=== PATIENT | male | born 1935 | race Caucasian/White ===

== ENCOUNTER 2018-07-14 20:11 | Emergency (ER) | payer MEDICARE, BC ==
--- NOTE | 2018-07-14 21:09 | RAD ---
CHEST ONE VIEW 07/14/18 HISTORY: Chest pain. COMPARISON: Chest radiograph 2015. FINDINGS: There is some scarring in the lung bases. Displaced suture anchor in the right subacromial space. Incomplete evaluation of the lumbar spinal fusion hardware. IMPRESSION: No acute intrathoracic abnormality. POS: [facility]
[2018-07-14] MEDS ORDERED: Dexamethasone 10 MG/ML VIAL ONE (21:15)
[2018-07-14 21:53] LABS: ALT (SGPT) 22 U/L (8-55); AST (SGOT) 21 U/L (5-34); Albumin 4.2 g/dL (3.4-4.8); Alkaline Phosphatase 80 U/L (40-150); Anion Gap 11 mmol/L (10-20); BUN (Urea Nitrogen) 10 mg/dL (8.4-25.7); Bilirubin, Total 0.7 mg/dL (0.2-1.2); CK (CPK) 35 U/L (30-200); Calc. Creatinine Clearance 0 mL/min (70-130); Calcium 9.5 mg/dL (7.8-10.44); Carbon Dioxide 27 mmol/L (23-31); Chloride 103 mmol/L (98-107); Estimated GFR-MDRD Greater than 90; Globulin 2.6 g/dL (2.4-3.5); Glucose 120 mg/dL (83-110); Lipase 73 U/L (8-78); Potassium 4.4 mmol/L (3.5-5.1); Protein, Total 6.8 g/dL (5.8-8.1); Sodium 137 mmol/L (136-145)
[2018-07-14 21:55] LABS: CKMB 0.9 ng/mL (0-6.6); Troponin I Less than 0.010 ng/mL (< 0.028)
[2018-07-14 22:12] LABS: #Lymphocytes 0.6 thou/uL (1.20-3.40); #Monocytes 0.6 thou/uL (0.11-0.59); #Neutrophils 5.6 thou/uL (1.40-6.50); %Eosinophils 0.1 % (0.0-10.0); %Lymphocytes 8.7 % (21.0-51.0); %Neutrophils 82.3 % (42.0-75.0); Hemoglobin 14.9 g/dL (14.0-18.0); Mean Corpuscular HGB CONC 33.1 g/dL (32.0-36.0); Mean Corpuscular Hemoglobin 32.2 pg (27.0-31.0); Mean Corpuscular Volume 97.1 fL (78.0-98.0); Mean Platelet Volume 6.8 fL (7.4-10.4); Platelet Count 236 thou/uL (130-400); RBC Distribution Width 11.7 % (11.5-14.5); Red Blood Cell (RBC) Count 4.63 mill/uL (4.70-6.10); White Blood Cell (WBC) Count 6.8 thou/uL (4.8-10.8)
--- NOTE | 2018-07-21 11:32 | EKG ---
Test Reason : DIZZINESS Blood Pressure : / mmHG Vent. Rate : 072 BPM Atrial Rate : 072 BPM P-R Int : 196 ms QRS Dur : 086 ms QT Int : 358 ms P-R-T Axes : 024 -08 030 degrees QTc Int : 392 ms Sinus rhythm with occasional Premature ventricular complexes Inferior infarct , age undetermined Abnormal ECG Confirmed by JOVAN MCRAE, EVAN ([id number]), publishing editor PRATIBHA RICHARDS ([id number]) on 07/21/2018 11:31:59 AM Referred By: Confirmed By:EVAN ALDANA MD
== END 2018-07-14 22:40 | disposition home or self-care (01) ==
LOC: ERS 20:11
DX: R42 Dizziness and giddiness (principal); R21 Rash and other nonspecific skin eruption
CPT/HCPCS: 36415; 71045; 80053; 82553; 83690; 84484; 85025; 93005; 96372; J1100

== ENCOUNTER 2018-07-19 07:44 | Emergency (ER) | payer MEDICARE, BC ==
[2018-07-19] MEDS ORDERED: Nitroglycerin 2% Ointment 1 INCH/1 GM Packet ONE (08:11)
[2018-07-19 08:36] LABS: #Basophils 0.1 thou/uL (0.0-0.2); #Eosinphils 0.1 thou/uL (0.0-0.7); #Lymphocytes 0.5 thou/uL (1.20-3.40); #Monocytes 0.9 thou/uL (0.11-0.59); #Neutrophils 7.4 thou/uL (1.40-6.50); %Basophils 1.4 % (0.0-1.0); %Eosinophils 1.6 % (0.0-10.0); %Lymphocytes 5.6 % (21.0-51.0); %Monocytes 9.5 % (0.0-10.0); %Neutrophils 81.8 % (42.0-75.0); Hemoglobin 15.2 g/dL (14.0-18.0); Mean Corpuscular HGB CONC 32.8 g/dL (32.0-36.0); Mean Corpuscular Hemoglobin 31.6 pg (27.0-31.0); Mean Corpuscular Volume 96.3 fL (78.0-98.0); Mean Platelet Volume 6.8 fL (7.4-10.4); Platelet Count 170 thou/uL (130-400); RBC Distribution Width 11.9 % (11.5-14.5); Red Blood Cell (RBC) Count 4.82 mill/uL (4.70-6.10); White Blood Cell (WBC) Count 9.1 thou/uL (4.8-10.8)
[2018-07-19 08:58] LABS: ALT (SGPT) 32 U/L (8-55); AST (SGOT) 27 U/L (5-34); Alkaline Phosphatase 85 U/L (40-150); Anion Gap 12 mmol/L (10-20); BUN (Urea Nitrogen) 20 mg/dL (8.4-25.7); Bilirubin, Total 0.7 mg/dL (0.2-1.2); CK (CPK) 24 U/L (30-200); Calc. Creatinine Clearance 0 mL/min (70-130); Calcium 9.3 mg/dL (7.8-10.44); Carbon Dioxide 23 mmol/L (23-31); Chloride 105 mmol/L (98-107); Estimated GFR-MDRD Greater than 90; Globulin 2.6 g/dL (2.4-3.5); Glucose 102 mg/dL (83-110); Lipase 105 U/L (8-78); Protein, Total 6.6 g/dL (5.8-8.1); Sodium 136 mmol/L (136-145)
[2018-07-19 09:02] LABS: CKMB 1.1 ng/mL (0-6.6); Troponin I Less than 0.010 ng/mL (< 0.028)
--- NOTE | 2018-07-19 10:26 | CT ---
CT ANGIO CHEST PERFORMED WITH IV CONTRAST ENHANCEMENT WITH 3D RECONSTRUCTIONS: Date 07/19/18 HISTORY: Chest pain, middle of back, radiates to the right side. Pain particularly with deep breath. FINDINGS: There is some gravity-dependent atelectatic change in the left base. There is slightly more prominent linear parenchymal change in the left lower lobe, still appears to represent atelectasis. There are no pleural effusions. No pulmonary nodules are identified. The thoracic aorta appears normal in caliber. There is good pulmonary artery opacification and there is no CT evidence for pulmonary embolus. Review of osseous structures do not show any signs of any acute rib fractures. There are arthritic ch anges of the spine. IMPRESSION: Atelectatic change in the lung bases, more prominent in the left lower lobe. I still would favor this to represent atelectasis rather than developing infiltrate. No CT evidence for pulmonary embolus. POS: [facility]
[2018-07-19] MEDS ORDERED: ISOVUE-370 76%-LOCM 1 ML ONE (11:11)
== END 2018-07-19 10:20 | disposition home or self-care (01) ==
LOC: ERS 07:44
DX: R07.89 Other chest pain (principal)
CPT/HCPCS: 71275; 80053; 82550; 82553; 83690; 83880; 84484; 85025; 93005

== ENCOUNTER 2018-10-09 08:08 | Emergency (ER) | payer MEDICARE, BC ==
[2018-10-09] MEDS ORDERED: Nitroglycerin 2% Ointment 1 INCH/1 GM Packet ONE (08:35)
[2018-10-09] MEDS ORDERED: Aspirin 325 MG TAB ONE (08:35)
[2018-10-09 08:49] LABS: #Eosinphils 0.2 thou/uL (0.0-0.7); #Lymphocytes 0.6 thou/uL (1.20-3.40); #Monocytes 0.4 thou/uL (0.11-0.59); #Neutrophils 3.9 thou/uL (1.40-6.50); %Basophils 0.3 % (0.0-1.0); %Lymphocytes 11.8 % (21.0-51.0); %Monocytes 6.9 % (0.0-10.0); Hemoglobin 15.3 g/dL (14.0-18.0); Mean Corpuscular HGB CONC 31.7 g/dL (32.0-36.0); Mean Corpuscular Hemoglobin 31.1 pg (27.0-31.0); Mean Platelet Volume 6.4 fL (7.4-10.4); Platelet Count 233 thou/uL (130-400); RBC Distribution Width 12.3 % (11.5-14.5); Red Blood Cell (RBC) Count 4.93 mill/uL (4.70-6.10); White Blood Cell (WBC) Count 5.1 thou/uL (4.8-10.8)
[2018-10-09 08:59] LABS: ALT (SGPT) 18 U/L (8-55); AST (SGOT) 20 U/L (5-34); Albumin 4.1 g/dL (3.4-4.8); Alkaline Phosphatase 78 U/L (40-150); Anion Gap 11 mmol/L (10-20); BUN (Urea Nitrogen) 16 mg/dL (8.4-25.7); Bilirubin, Total 0.8 mg/dL (0.2-1.2); Calc. Creatinine Clearance 0 mL/min (70-130); Calcium 9.8 mg/dL (7.8-10.44); Carbon Dioxide 31 mmol/L (23-31); Chloride 104 mmol/L (98-107); Estimated GFR-MDRD Greater than 90; Globulin 2.6 g/dL (2.4-3.5); Glucose 85 mg/dL (83-110); Potassium 3.9 mmol/L (3.5-5.1); Protein, Total 6.7 g/dL (5.8-8.1); Sodium 142 mmol/L (136-145)
--- NOTE | 2018-10-09 09:20 | RAD ---
PORTABLE AP CHEST RADIOGRAPH: Date: 10-09-18 History: Chest pain. Comparison: 07-14-18 FINDINGS: Cardiac silhouette and pulmonary vasculature are within normal limits. Linear densities are seen at t he left lung base which may be related to atelectasis or scarring. Lungs are otherwise clear. Cardiac silhouette and pulmonary vasculature within normal limits. Vascular calcification is seen in the tho racic aorta. Metallic density again overlies the right shoulder which may be related to either post-s urgical change or metallic foreign body. No other interval change. IMPRESSION: Stable chest without significant acute cardiopulmonary process. There is mild atelectasis versus scar ring at the left lung base. POS: [facility]
[2018-10-09 11:25] LABS: Troponin I Less than 0.010 ng/mL (< 0.028)
[2018-10-09] MEDS ORDERED: Acetaminophen 325 MG TAB ONE (11:57)
--- NOTE | 2018-10-10 15:53 | EKG ---
Test Reason : CP Blood Pressure : / mmHG Vent. Rate : 090 BPM Atrial Rate : 090 BPM P-R Int : 228 ms QRS Dur : 090 ms QT Int : 342 ms P-R-T Axes : 046 -09 061 degrees QTc Int : 418 ms Sinus rhythm with 1st degree A-V block Low voltage QRS Inferior infarct , age undetermined Abnormal ECG Confirmed by GE MERLOS ([id number]), editorial director EDWARD MORA ([id number]) on 10/10/2018 3:53:16 PM Referred By: Confirmed By:GE MERLOS
== END 2018-10-09 12:08 | disposition home or self-care (01) ==
LOC: ERS 08:08
DX: R07.89 Other chest pain (principal); G47.00 Insomnia, unspecified
CPT/HCPCS: 36415; 71045; 80053; 84484; 85025; 93005

== ENCOUNTER 2019-03-18 18:05 | Emergency (ER) | payer MEDICARE, BC ==
[~2019-03-18 18:05] MED LIST: ISOVUE-370 76%-LOCM 1 ML ONE
[2019-03-18 19:54] LABS: #Eosinphils 0.4 thou/uL (0.0-0.7); #Lymphocytes 0.9 thou/uL (1.20-3.40); #Monocytes 0.5 thou/uL (0.11-0.59); #Neutrophils 2.8 thou/uL (1.40-6.50); %Basophils 0.1 % (0.0-1.0); %Eosinophils 8.1 % (0.0-10.0); %Lymphocytes 19.2 % (21.0-51.0); %Monocytes 10.1 % (0.0-10.0); %Neutrophils 62.5 % (42.0-75.0); Hemoglobin 14.5 g/dL (14.0-18.0); Mean Corpuscular HGB CONC 33.5 g/dL (32.0-36.0); Mean Corpuscular Hemoglobin 32.2 pg (27.0-31.0); Mean Corpuscular Volume 96.2 fL (78.0-98.0); Platelet Count 179 thou/uL (130-400); RBC Distribution Width 11.8 % (11.5-14.5); Red Blood Cell (RBC) Count 4.48 mill/uL (4.70-6.10); White Blood Cell (WBC) Count 4.5 thou/uL (4.8-10.8)
--- NOTE | 2019-03-18 19:59 | ULT ---
ULTRASOUND DOPPLER DUPLEX VENOUS BILATERAL LOWER EXTREMITIES: DATE: 03/18/2019 HISTORY: Right lower extremity pain in 83-year-old male. The assistant spa manager reported the DVT to the patient's nurse, Lonnie prior to this report TECHNIQUE: Grayscale, color-flow, and spectral analysis, of the bilateral common femoral, profunda femoral, grea ter saphenous, femoral, popliteal, and posterior tibial, veins. FINDINGS: There is thrombosis of the mid and distal portions of the femoral vein. There is blood flow through t hese veins, although somewhat diminished. The midportion of the posterior tibial vein is not visualized, and it is questionably thrombosed. IMPRESSION: Nonocclusive thrombosis, probably acute, of the mid and distal portions of the femoral vein, and poss ibly a portion of the posterior tibial vein.
[2019-03-18 20:02] LABS: INR-International Normal Ratio 1.1; PTT 32.4 SEC (22.9-36.1); Prothrombin Time 14.1 SEC (12.0-14.7)
[2019-03-18 20:15] LABS: ALT (SGPT) 19 U/L (8-55); AST (SGOT) 24 U/L (5-34); Albumin 4.2 g/dL (3.4-4.8); Alkaline Phosphatase 100 U/L (40-150); Anion Gap 12 mmol/L (10-20); BUN (Urea Nitrogen) 18 mg/dL (8.4-25.7); Bilirubin, Total 0.6 mg/dL (0.2-1.2); Calc. Creatinine Clearance 0 mL/min (70-130); Calcium 10.2 mg/dL (7.8-10.44); Carbon Dioxide 29 mmol/L (23-31); Chloride 105 mmol/L (98-107); Estimated GFR-MDRD 84; Globulin 2.3 g/dL (2.4-3.5); Glucose 100 mg/dL (83-110); Potassium 4.1 mmol/L (3.5-5.1); Protein, Total 6.5 g/dL (5.8-8.1); Sodium 142 mmol/L (136-145)
--- NOTE | 2019-03-18 20:59 | CT ---
Contrast-enhanced CTA chest history: Patient with history of knee replacement 2 years ago with heel pain. The patient has suspici ous labs for pulmonary emboli and reports intermittent history of swelling. Contrast-enhanced CTA chest performed 2-D and 3-D reconstruction images performed. There is a large gallstone diameter measuring 1.9 cm. Some areas of left lower lobe lung parenchymal scarring present. Coronary artery calcifications seen. No evidence of pleural or pericardial effusion seen. No evidence of filling defects seen in the pulmonary arteries to suggest pulmonary emboli. In the left lower lobe there appears to be areas of decreased enhancement likely representing pulmona ry veins in the left lung base. IMPRESSION: No evidence of pulmonary emboli.
[2019-03-18] MEDS ORDERED: Enoxaparin Sodium 80 MG/0.8 ML SYRINGE ONE (22:04)
== END 2019-03-18 23:20 | disposition home or self-care (01) ==
LOC: ERS 18:05
DX: I82.401 Acute embolism and thrombosis of unspecified deep veins of right lower extremity (principal)
CPT/HCPCS: 36415; 71275; 80053; 85025; 85379; 85610; 85730; 96372; J1650; Q9966

== ENCOUNTER 2019-04-01 11:38 | Emergency (ER) | payer MEDICARE, BC ==
--- NOTE | 2019-04-01 13:23 | ULT ---
ULTRASOUND DOPPLER DUPLEX VENOUS LEFT LOWER EXTREMITY: DATE: 04/01/2019 HISTORY: Left lower Lexi pain and swelling, edema TECHNIQUE: Grayscale, color-flow, and spectral analysis, of major veins of left lower extremity. FINDINGS: There is demonstration of blood flow with normal compressibility, of the left common femoral, profund a femoral, greater saphenous, femoral, popliteal, and posterior tibial, veins. IMPRESSION: Negative. No deep venous thrombosis of left lower extremity.
--- NOTE | 2019-04-01 14:29 | RAD ---
XR Knee Lt 4 View STANDARD: 04/01/2019 1:48 PM CLINICAL INDICATION: Left knee pain COMPARISON: None. FINDINGS: Bones: There is diffuse osteopenia. No acute fracture or subluxation is present. Joints: There is mild medial femorotibial joint compartmental narrowing. There is chondrocalcinosis s een involving the fibrocartilage of the left knee.. Soft Tissue: No joint capsular distention is evident. There are vascular calcifications within the ad jacent soft tissues.. IMPRESSION: Mild osteoarthrosis of the left knee. No acute fracture or subluxation demonstrated..
== END 2019-04-01 14:43 | disposition home or self-care (01) ==
LOC: ERS 11:38
DX: M25.562 Pain in left knee (principal); I10 Essential (primary) hypertension; Z86.718 Personal history of other venous thrombosis and embolism; G47.00 Insomnia, unspecified; Z79.82 Long term (current) use of aspirin; Z79.01 Long term (current) use of anticoagulants; Z79.899 Other long term (current) drug therapy

== ENCOUNTER 2019-08-13 08:46 | Emergency (ER) | payer MEDICARE, BC | END 2019-08-13 09:50 | disposition home or self-care (01) | LOC: ERS 08:46 | DX: T18.198A Other foreign object in esophagus causing other injury, initial encounter (principal); I10 Essential (primary) hypertension; G47.00 Insomnia, unspecified; Z86.718 Personal history of other venous thrombosis and embolism; Z79.899 Other long term (current) drug therapy; Z79.82 Long term (current) use of aspirin | CPT/HCPCS: 99283 ==

== ENCOUNTER 2019-09-11 08:38 | Outpatient (CLI) | payer MEDICARE, BC ==
--- NOTE | 2019-09-12 11:00 | RAD ---
Modified barium swallow: 09/11/2019 HISTORY: Dysphasia, history of chronic sinusitis, hypertension, and asthma, muscle weakness, recent e pisode of choking on a pill requiring emergency evaluation FINDINGS: Residua is noted within the vallecula with multiple consistencies. Posterior impression of proximal esophagus noted on the basis of cervical spine osteophytosis and small cricopharyngeal bar. No aspiration is evident on this examination. Penetration is seen within liquids. Please see speech p athologist report for full detail and feeding recommendations. IMPRESSION: Penetration without aspiration. Please see above discussion.
== END 2019-09-11 08:39 | disposition home or self-care (01) ==
PROVIDERS: ATTEND Otolaryngology Pediatric Otolaryngology
DX: R13.10 Dysphagia, unspecified (principal); M62.81 Muscle weakness (generalized); M25.78 Osteophyte, vertebrae
CPT/HCPCS: 74230

== ENCOUNTER 2019-10-07 12:30 | Observation (INO) | payer MEDICARE, BC ==
[2019-10-07 13:32] LABS: #Eosinphils 0.1 thou/uL (0.0-0.7); #Lymphocytes 0.7 thou/uL (1.20-3.40); #Monocytes 0.4 thou/uL (0.11-0.59); #Neutrophils 3.4 thou/uL (1.40-6.50); %Basophils 0.2 % (0.0-1.0); %Eosinophils 2.4 % (0.0-10.0); %Lymphocytes 14.8 % (21.0-51.0); %Monocytes 8.4 % (0.0-10.0); %Neutrophils 74.4 % (42.0-75.0); Hemoglobin 14.4 g/dL (14.0-18.0); Mean Corpuscular HGB CONC 33.2 g/dL (32.0-36.0); Mean Corpuscular Hemoglobin 32.3 pg (27.0-31.0); Mean Corpuscular Volume 97.1 fL (78.0-98.0); Mean Platelet Volume 6.4 fL (7.4-10.4); Platelet Count 173 thou/uL (130-400); RBC Distribution Width 11.9 % (11.5-14.5); Red Blood Cell (RBC) Count 4.45 mill/uL (4.70-6.10); White Blood Cell (WBC) Count 4.6 thou/uL (4.8-10.8)
[2019-10-07 14:00] LABS: ALT (SGPT) 15 U/L (8-55); AST (SGOT) 19 U/L (5-34); Albumin 3.8 g/dL (3.4-4.8); Alkaline Phosphatase 90 U/L (40-110); Anion Gap 9 mmol/L (10-20); BUN (Urea Nitrogen) 13 mg/dL (8.4-25.7); Bilirubin, Total 0.6 mg/dL (0.2-1.2); Calc. Creatinine Clearance 0 mL/min (70-130); Calcium 9.4 mg/dL (7.8-10.44); Carbon Dioxide 30 mmol/L (23-31); Chloride 105 mmol/L (98-107); Estimated GFR-MDRD 83; Globulin 2.4 g/dL (2.4-3.5); Glucose 102 mg/dL (83-110); Potassium 4.2 mmol/L (3.5-5.1); Protein, Total 6.2 g/dL (5.8-8.1); Sodium 140 mmol/L (136-145)
[2019-10-07] MEDS ORDERED: Clindamycin/D5W 300 MG in Premix Bag 1 BAG IVPB SCH (16:45)
[2019-10-07] MEDS ORDERED: Acetaminophen 325 MG TAB PO PRN (19:08)
[2019-10-07] MEDS ORDERED: Enoxaparin Sodium 40 MG/0.4 ML SYRINGE SC SCH (19:15)
[2019-10-07 19:59] LABS: Troponin I Less than 0.010 ng/mL (< 0.028)
[2019-10-07 20:18] VITALS: BMI 20.5
[2019-10-07] MEDS: Lorazepam 1 MG TAB PO SCH (22:11)
[2019-10-07 23:49] LABS: Troponin I Less than 0.010 ng/mL (< 0.028)
[2019-10-08] MEDS: Clindamycin/D5W 900 MG in Premix Bag 1 BAG IVPB SCH ×2 (00:02→09:52)
--- NOTE | 2019-10-08 02:24 | HP ---
CHIEF COMPLAINT: Rash on leg. 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 Otherwise, the patient has had a number of orthopedic issues, but is generally quite healthy. The patient reported that he has had some difficulty with swallowing at times due to some laryngeal weakness. He has a speech therapist, who is coming and working with him. He reports that he is still on a regular diet; however, he reports that he had about 3 weeks ago developed some generalized erythema of both feet. He soaked his feet and used some cocoa butter and believes it got all better; however, about 3 days ago, he had a recurrence of some erythema on the right lower calf area. His speech therapist took picture of it when she noticed it and send it to Dr. Minor, his PCP. He was called out Augmentin. When the speech therapist returned today, she noted that it had progressed and he was subsequently referred to the emergency department. He denies any pain, itch, swelling, fevers, or chills. REVIEW OF SYSTEMS: The patient reports he had some history of chronic constipation, but it resolves with regular use of the Metamucil and the above-mentioned swallowing issues. Otherwise, all systems were reviewed. All pertinent positives and negatives are noted in the history of present illness. PAST MEDICAL HISTORY: Notable for the above-mentioned mumps in his 20s that resulted in orchitis and subsequent sterility and hypogonadism, for which he uses the AndroGel. He has chronic dry eye syndrome and insomnia. PAST SURGICAL HISTORY: Cataract-ectomy, multiple lumbar back surgeries, hip replacement x4, right rotator cuff repair, right total knee replacement, and several hand surgeries. FAMILY HISTORY: Father of a CVA, also had prior MIs. Mother of pneumonia. He had two brothers, who of MIs or CVAs, he is not exactly sure which. SOCIAL HISTORY: The patient is a nonsmoker, nondrinker, and nondrug user. He is full code. His two sons would be his surrogate decision makers. He is . ALLERGIES: NONE. CURRENT MEDICATIONS: 1. AndroGel 40.5 mg transdermally daily. 2. Ativan 3 mg at bedtime. 3. Metamucil one packet daily. 4. Augmentin 875 one p.o. b.i.d. PHYSICAL EXAMINATION: VITAL SIGNS: BP 144/66, pulse 77, respirations 16, temperature is 97.9, and O2 saturations 97% on room air. GENERAL APPEARANCE: Age-appropriate male, in no distress. He is awake, alert, oriented, pleasant, and cooperative. HEENT: PERRL. No OP lesions. NECK: Supple and symmetric. HEART: Regular rate and rhythm. LUNGS: Clear to auscultation bilaterally with good chest wall expansion and air exchange. ABDOMEN: Soft, nontender, and nondistended. Positive bowel sounds. No masses. No organomegaly. EXTREMITIES: There is no cyanosis, clubbing, or edema. His feet do demonstrate onychomycosis and onycholysis of all toes. He has some scaling flaking skin over the plantar surfaces of both feet, and the right lower extremity has a large area of erythema with a bright erythema, serpiginous, well-defined border with a brownish pallor centrally with clearing of the erythema centrally. There are also multiple smaller satellite lesions. There is a very small area on the left lower extremity as well, this area is not significantly warm or tender. PSYCH: Normal affect and behavior. NEURO: The patient has normal cranial nerves. Normal cognition. Normal spontaneous movement in all extremities with no focal deficits. LABORATORY DATA: White count 4.6, hemoglobin 14.4, and platelets 173. Sodium 140, potassium 4.2, chloride 105, CO2 of 30, BUN 13, creatinine 0.88, glucose 102, AST 19, ALT 15, CRP is less than 50, and albumin 3.8. IMPRESSION AND PLAN: 1. This patient developed atrial flutter with controlled rates on the monitor in the emergency department. The patient has no history of atrial fibrillation or atrial flutter. It was a very brief run that was spontaneously converted back to sinus rhythm. We will keep him on telemetry and check troponins and check TSH. 2. I suspect the patient actually has a fungal dermatitis of the right lower extremity. Given the serpiginous, well-defined erythematous border, central clearing and satellite lesions, we will continue with the clindamycin, but add topical ketoconazole. We will recheck a CBC in the morning. If he remains afebrile and white count is normal, we will likely be able to discontinue antibacterials and continue with treatment for fungal dermatitis. 3. History of hypogonadism secondary to remote history of orchitis related to mumps. Continue with AndroGel. 4. History of insomnia. Continue with his home [facility]. Job ID: [id number]
[2019-10-08 02:31] LABS: #Eosinphils 0.1 thou/uL (0.0-0.7); #Lymphocytes 0.7 thou/uL (1.20-3.40); #Monocytes 0.5 thou/uL (0.11-0.59); #Neutrophils 2.7 thou/uL (1.40-6.50); %Basophils 0.3 % (0.0-1.0); %Monocytes 12.9 % (0.0-10.0); %Neutrophils 65.8 % (42.0-75.0); Hemoglobin 13.6 g/dL (14.0-18.0); Mean Corpuscular HGB CONC 34.3 g/dL (32.0-36.0); Mean Corpuscular Hemoglobin 33.2 pg (27.0-31.0); Mean Corpuscular Volume 96.7 fL (78.0-98.0); Mean Platelet Volume 6.5 fL (7.4-10.4); Platelet Count 160 thou/uL (130-400); RBC Distribution Width 11.7 % (11.5-14.5)
[2019-10-08 02:57] LABS: Troponin I Less than 0.010 ng/mL (< 0.028)
[2019-10-08] MEDS ORDERED: Prevnar 13-Val Conj/PF 0.5 ML SYRINGE IM ONE (09:00)
[2019-10-08] MEDS ORDERED: Enoxaparin Sodium 40 MG/0.4 ML SYRINGE SC SCH (09:00)
[2019-10-08] MEDS: Ketoconazole 2% Cream 15 gm Tube TOP SCH (11:18)
[2019-10-08] MEDS: Metamucil PACK PO SCH (11:20)
--- NOTE | 2019-10-08 15:46 | PDOC.HOSPP ---
- Subjective Subjective: Feels fine. Denies any CP, palpitations or lightheadedness/dizziness. Continues to want to talk about his chronic right heel pain. - Objective Vital Signs & Weight: Vital Signs (12 hours) Temp Pulse Resp BP BP Pulse Ox 10/08/19 11:25 97.8 F 63 16 128/62 95 10/08/19 07:53 98.1 F 63 16 102/58 L 96 10/08/19 04:05 97.6 F 65 16 124/58 L 96 Weight Weight 151 lb 9.6 oz I&O: 10/07/19 10/08/19 10/09/19 06:59 06:59 06:59 Intake Total 240 Output Total 475 Balance -235 Result Diagrams: 10/08/19 02:20 10/07/19 13:21 Hospitalist ROS - Medication Medications: Active Medications Generic Name Dose Route Start Last Admin Trade Name Freq PRN Reason Stop Dose Admin Ketoconazole 1 gm 10/08/19 09:00 10/08/19 11:18 Nizoral 2% Cream TOP 1 applic DAILY MALI Administration Lorazepam 3 mg 10/07/19 21:00 10/07/19 22:11 Ativan PO 3 mg HS MALI Administration Psyllium Hydrophilic Mucilloid 1 pk 10/08/19 09:00 10/08/19 11:20 Metamucil PO 1 pk DAILY MALI Administration - Exam General Appearance: NAD, awake alert Neck: supple, symmetric, no JVD, no thyromegaly, no lymphadenopathy, no carotid bruit Heart: RRR, no murmur, no gallops, no rubs, normal peripheral pulses Respiratory: CTAB, no wheezes, no rales, no ronchi, normal chest expansion, no tachypnea, normal percussion Gastrointestinal: soft, non-tender, non-distended, normal bowel sounds, no palpable masses Extremities: no cyanosis, no clubbing, no edema Skin: normal turgor Skin - other findings: B plantar surfaces with flaking, peeling. Eryth area right calf. 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 WBC is low and he is afebrile. Classic appearance of dermatomycosis. Continue topical ketoconazole. DC antibiotics. Echo Cardiol consult. Seems to be solely flutter, asymptomatic and rate controlled.
[2019-10-08] MEDS: Enoxaparin Sodium 80 MG/0.8 ML SYRINGE SC SCH ×2 (21:10→23:17)
[2019-10-08] MEDS: Lorazepam 1 MG TAB PO SCH ×2 (21:11→23:17)
[2019-10-09 08:30] VITALS: BP 132/65; TEMP 97.8
[2019-10-09] MEDS: Enoxaparin Sodium 80 MG/0.8 ML SYRINGE SC SCH (09:20)
[2019-10-09] MEDS: Ketoconazole 2% Cream 15 gm Tube TOP SCH (09:21)
[2019-10-09] MEDS: Metamucil PACK PO SCH (09:21)
--- NOTE | 2019-10-09 14:15 | PRG ---
DATE OF SERVICE: 10/09/2019 SUBJECTIVE: Mr. Bravo is doing well. No current complaints. OBJECTIVE: VITAL SIGNS: Blood pressure 132/65, pulse 65, and temperature 97.8. LUNGS: Clear to auscultation. HEART: Regular rate and rhythm. ABDOMEN: Soft, nontender, and nondistended. EXTREMITIES: No edema. IMPRESSION: 1. Brief atrial flutter/fibrillation. 2. Second-degree type 2 AV block, asymptomatic. 3. Recent cellulitis. RECOMMENDATIONS: Given minimal symptoms by Mr. Bravo, we would recommend anticoagulation therapy for his atrial fibrillation. He had a brief episode. We would like to address any longer in further episodes. Xarelto has been added. We will recommend a 3-week event recorder. Plan is to follow up with Mr. Bravo in the office in the coming weeks. His overall LVEF appears normal. Job ID: [id number]
--- NOTE | 2019-10-10 05:33 | DIS ---
DATE OF ADMISSION: 10/07/2019 DATE OF DISCHARGE: 10/09/2019 DISCHARGE DIAGNOSES: 1. Atrial flutter, rate controlled. 2. Dermatomycosis. 3. First-degree atrioventricular block. CONSULTATIONS: 1. Dr. Weldon with Cardiology Service. 2. Dr. Johnson with Electrophysiology Service. PERTINENT LABORATORY AND X-RAY FINDINGS: 1. Complete metabolic profile within normal limits. Troponin I negative x3. TSH 1.11. 2. CBC within normal limits. Blood cultures x2 dated 10/07/2019, showed no growth to date. 3. A 2D transthoracic echocardiogram dated 10/08/2019, showed ejection fraction of 50% to 55%. HOSPITAL COURSE: The patient initially complaining of right lower extremity redness and skin irritation concerning for infectious process. The patient apparently was placed on Augmentin on an outpatient basis. During the patient's initial evaluation in the emergency room, the patient was noted with atrial flutter with rate control and placed under observation on the telemetry unit. The patient was evaluated by the Cardiology and Electrophysiology Service with recommendations for oral anticoagulation in addition to an event monitor. The patient converted back to sinus mechanism and was noted with first-degree AV block. The patient received topical treatment with ketoconazole and overall remained clinically stable during the hospital course. Current recommendations are for continued oral anticoagulation and an event monitor over the next 2 to 4 weeks. I have examined the patient at the time of discharge and discussed followup instructions. The patient verbalized understanding and agreement, ready for discharge on 10/09/2019. DISCHARGE MEDICATIONS: 1. Eliquis 5 mg p.o. b.i.d. 2. AndroGel 1%, 25 mg transdermally q.a.m. 3. Ativan 3 mg p.o. at bedtime. 4. Augmentin 875 mg p.o. b.i.d. 5. Nizoral 2% cream 1 application topically daily. FOLLOWUP: 1. The patient may follow up with his primary care provider, Dr. Yobani Alberts within 7 days of discharge. 2. The patient to follow up with Dr. Yaya Weldon in 2 to 3 weeks after discharge. CONDITION ON DISCHARGE: Stable. ACTIVITY: Ad-davis. DIET: Regular. CODE STATUS: Full. DISPOSITION: To home, 10/09/2019. Job ID: [id number]
--- NOTE | 2019-10-11 07:44 | CON ---
DATE OF CONSULTATION: 10/08/2019 Dictated by LAURA Zabala, as scribe for Dr. Johnson. REASON FOR CONSULTATION: Atrial arrhythmias. HISTORY OF PRESENT ILLNESS: Mr. Bravo is an 84-year-old gentleman with a history of mumps as a child, resulting in hypogonadism, on chronic replacement therapy. He has had a number of orthopedic issues, but generally is in good health. He had some erythema on his right lower leg, which had been progressing and he was taken to see his primary care provider, Dr. Minor. He was subsequently referred to the emergency department. While he was being monitored, he was found to have atrial arrhythmias with PACs and electrophysiology consult was initiated. Mr. Bravo is pleasant overall. He is feeling fairly well. He does not have any significant cardiac concerns or complaints today, but has possibly some underlying dementia. His son is with him and reports he was feeling poorly the day he came in to the hospital, but has a very difficult time correlating symptoms to his arrhythmia events. When he presented to the hospital, he was in atrial flutter and atrial fibrillation has also been seen. He spontaneously converted to sinus rhythm. REVIEW OF SYSTEMS: A 12-point review of systems is negative except that listed above in HPI. PAST MEDICAL HISTORY: 1. Hypogonadism with chronic replacement therapy secondary to mumps as a child. 2. Chronic constipation. 3. Swallowing issues. PAST SURGICAL HISTORY: 1. Cataractectomy. 2. Multiple lumbar surgeries. 3. Hip replacement x4. 4. Right rotator cuff repair. 5. Right total knee. 6. Hand surgeries. FAMILY HISTORY: Father from a stroke and had prior MIs. Mother of pneumonia. Two brothers of MIs and strokes, not entirely sure which. SOCIAL HISTORY: Denies alcohol, tobacco, or illicit drug use. Full code. He is . He has 2 sons who are his surrogate decision makers. ALLERGIES: NONE. HOME MEDICATIONS: 1. AndroGel daily. 2. Ativan 3 mg at bedtime. 3. Metamucil daily. 4. Augmentin p.o. b.i.d. OBJECTIVE: VITAL SIGNS: Temperature 97.8, pulse 63, blood pressure 128/62, respirations 16, and oxygen is 95% on room air. GENERAL: The patient is resting comfortably in bed, in no apparent distress at the time of exam. He is awake, alert, and oriented. HEENT: His neck is supple without jugular venous distention. There are no carotid bruits. No thyroid nodules. CARDIOVASCULAR: Heart rate is irregularly irregular with crisp S1 and S2. No significant murmur, rub, or gallop appreciated. PULMONARY: Lungs are clear to auscultation bilaterally without wheezes, crackles, or rhonchi and good bilateral excursion is seen. ABDOMEN: Soft, nontender, and nondistended. Positive bowel sounds throughout. Hepatojugular reflux is negative. EXTREMITIES: Warm and dry to touch without clubbing, cyanosis, or edema. Right lower extremity has a large area of erythema. NEUROLOGIC: Grossly intact and nonfocal. DATABASE: Initial EKG shows atrial flutter. He also has atrial fibrillation. He converted to sinus rhythm spontaneously out of the atrial flutter. Hematology, unremarkable. Chemistry; potassium 4.2, creatinine 0.88. Troponins were negative. TSH 1.1. IMPRESSION: 1. Lower extremity cellulitis to the right leg. 2. Paroxysmal atrial fibrillation/atrial flutter, spontaneously terminating to sinus rhythm. 3. Frequent premature atrial contractions, occasionally non-conducted. 4. History of deep vein thrombosis with prior oral anticoagulation. PLAN AND RECOMMENDATIONS: Mr. Bravo is experiencing paroxysmal atrial arrhythmias. His CHADS-VASc score is at least 2 for his advanced age and there is an indication for chronic anticoagulation with an agent, such as Eliquis. Appropriate dosing for him would be to 5 mg p.o. b.i.d. or Xarelto 20 mg daily. We will arrange for an outpatient monitor for 2-4 weeks to better assess arrhythmia burden and whether or not he is symptomatic with his atrial arrhythmias. He is quite elderly and with some underlying confusion. I would be hesitant to recommend an ablation. We could consider antiarrhythmic therapy if we are able to correlate symptoms with arrhythmias or if high burden of arrhythmias is seen. Thank you for allowing me to participate in the care of this patient. Job ID: [id number] [facility]
== END 2019-10-09 14:16 | disposition home or self-care (01) ==
LOC: ERS 12:30 → ERHOLD 18:33 → 2SW 20:11
PROVIDERS: ADMIT Internal Medicine; ATTEND Internal Medicine
DX: I48.92 Unspecified atrial flutter (principal); I48.0 Paroxysmal atrial fibrillation; B36.9 Superficial mycosis, unspecified; I44.0 Atrioventricular block, first degree; I44.1 Atrioventricular block, second degree; L03.115 Cellulitis of right lower limb; I49.1 Atrial premature depolarization; Z79.01 Long term (current) use of anticoagulants; Z86.718 Personal history of other venous thrombosis and embolism; Z79.899 Other long term (current) drug therapy; G47.00 Insomnia, unspecified
CPT/HCPCS: 80053; 84443; 84484 ×3; 85025 ×2; 85652; 86140; 87040; 90670; 93306; 96365; 96366; 96372 ×2; 99284; G0009; G0378 ×4; 36415; 90471; J1650; J3490

== ENCOUNTER → 2019-12-18 | Day surgery (SDC) | payer MEDICARE, BC ==
[2019-12-17 13:39] VITALS: BMI 21.7
[~2019-12-18] MED LIST changes: -ISOVUE-370 76%-LOCM 1 ML ONE; +Lidocaine 1% w/Epinephrine 1:100K 20 ML VIAL ONE
[2019-12-18 09:19] LABS: #Eosinphils 0.1 thou/uL (0.0-0.7); #Lymphocytes 0.6 thou/uL (1.20-3.40); #Monocytes 0.3 thou/uL (0.11-0.59); %Eosinophils 1.9 % (0.0-10.0); %Lymphocytes 15.2 % (21.0-51.0); %Neutrophils 74.9 % (42.0-75.0); Hemoglobin 15.1 g/dL (14.0-18.0); Mean Corpuscular Hemoglobin 32.3 pg (27.0-31.0); Platelet Count 185 thou/uL (130-400); RBC Distribution Width 11.6 % (11.5-14.5); Red Blood Cell (RBC) Count 4.68 mill/uL (4.70-6.10)
[2019-12-18 09:29] LABS: INR-International Normal Ratio 2.3; Prothrombin Time 25.4 SEC (12.0-14.7)
[2019-12-18 09:30] LABS: PTT 52.3 SEC (22.9-36.1)
[2019-12-18 09:42] LABS: Anion Gap 13 mmol/L (10-20); BUN (Urea Nitrogen) 11 mg/dL (8.4-25.7); Calc. Creatinine Clearance 78 mL/min (70-130); Calcium 9.6 mg/dL (7.8-10.44); Carbon Dioxide 26 mmol/L (23-31); Chloride 105 mmol/L (98-107); Estimated GFR-MDRD Greater than 90; Glucose 87 mg/dL (83-110); Potassium 3.9 mmol/L (3.5-5.1); Sodium 140 mmol/L (136-145)
--- NOTE | 2019-12-18 12:20 | OP ---
DATE OF PROCEDURE: 12/18/2019 PROCEDURE PERFORMED: Loop recorder insertion. REASON FOR PROCEDURE: Mr. Bravo is an 84-year-old gentleman with history of paroxysmal atrial fibrillation, spontaneous conversion to sinus rhythm with prior to rule out recurrent AFib. He is here for longer-term monitoring of atrial fibrillation. DESCRIPTION OF PROCEDURE: The patient received no sedation. The precordial area was prepped, draped, and anesthetized using subcutaneous lidocaine, and over the 4th intercostal space, an incision was made with a standard [employer] tool kit. The LINQ recorder was inserted. The adequate sensing is ascertained and the wound was closed with Dermabond closure. The device is a [employer]wellable LINQ, model #LINQ11, serial #[id number] serial #[id number]. CONCLUSION: Successful LINQ recorder implant. PLAN: Continue routine monitoring of recurrent atrial fibrillation and determine need for anticoagulation in the future. Job ID: [id number]
--- NOTE | 2019-12-19 12:31 | EKG ---
Test Reason : PREOP Blood Pressure : / mmHG Vent. Rate : 067 BPM Atrial Rate : 067 BPM P-R Int : 222 ms QRS Dur : 104 ms QT Int : 390 ms P-R-T Axes : 057 -19 042 degrees QTc Int : 412 ms Sinus rhythm with 1st degree A-V block Low voltage QRS Inferior infarct , age undetermined cannot be excluded Abnormal ECG Confirmed by RENALDO BURDICK ([id number]) on 12/19/2019 12:31:20 PM Referred By: EMILEE Confirmed By:RENALDO BURDICK
== END ==
LOC: CCL 08:29
PROVIDERS: ATTEND Internal Medicine Cardiovascular Disease
PROC: 0JH632Z Insertion of Monitoring Device into Chest Subcutaneous Tissue and Fascia, Percutaneous Approach (ICD-10-PCS; principal; 2019-12-18)
DX: I48.0 Paroxysmal atrial fibrillation (principal); I08.3 Combined rheumatic disorders of mitral, aortic and tricuspid valves; Z79.01 Long term (current) use of anticoagulants; Z79.51 Long term (current) use of inhaled steroids; Z79.899 Other long term (current) drug therapy
CPT/HCPCS: 33285; 36415; 80048; 85025; 85610; 85730; 93005; 93010; C1764

== ENCOUNTER 2021-05-05 14:17 | Outpatient (CLI) | payer MEDICARE | END 2021-05-05 14:18 | disposition home or self-care (01) | LOC: BICCT 14:17 | PROVIDERS: ATTEND Family Medicine | DX: I95.1 Orthostatic hypotension (principal); R42 Dizziness and giddiness; H53.2 Diplopia | CPT/HCPCS: 70450 ==

== ENCOUNTER 2024-04-29 07:13 | Inpatient (IN) | payer MEDICARE ==
[2024-04-29 08:11] LABS: #Basophils Less than 0.03 10x3/uL (0.0-0.2); %Basophils 0.3 % (0.0-1.0); %Eosinophils 3.2 % (0.0-10.0); %Lymphocytes 6.3 % (21.0-51.0); %Monocytes 9.2 % (0.0-10.0); %Neutrophils 80.6 % (42.0-75.0); Hematocrit 39.8 % (42.0-52.0); Hemoglobin 13.4 g/dL (14.0-18.0); Mean Corpuscular HGB CONC 33.7 g/dL (32.0-36.0); Mean Corpuscular Hemoglobin 32.4 pg (27.0-31.0); Mean Corpuscular Volume 96.1 fL (78.0-98.0); Mean Platelet Volume 9.6 fL (7.4-10.4); Platelet Count 167 10x3/uL (130-400); RBC Distribution Width 12.5 % (11.5-14.5); Red Blood Cell (RBC) Count 4.14 mill/uL (4.70-6.10)
[2024-04-29 08:31] LABS: ALT (SGPT) 18 U/L (8-55); AST (SGOT) 20 U/L (5-34); Albumin 3.5 g/dL (3.4-4.8); Alkaline Phosphatase 125 U/L (40-110); Anion Gap 14 mmol/L (10-20); BUN (Urea Nitrogen) 14 mg/dL (8.4-25.7); Bilirubin, Total 1.1 mg/dL (0.2-1.2); Calc. Creatinine Clearance 0 mL/min (70-130); Calcium 9.2 mg/dL (7.8-10.44); Carbon Dioxide 28 mmol/L (23-31); Chloride 100 mmol/L (98-107); Estimated GFR 89; Globulin 2.2 g/dL (2.4-3.5); Glucose 108 mg/dL (83-110); Potassium 4.4 mmol/L (3.5-5.1); Protein, Total 5.7 g/dL (5.8-8.1); Sodium 138 mmol/L (136-145)
[2024-04-29 08:35] LABS: Troponin I 0.018 ng/mL (< 0.028)
[2024-04-29 09:18] LABS: Bacteria/HPF None Seen HPF (None Seen); Bilirubin Negative (Negative); Blood, Urine Negative (Negative); CAUTI Indications for Culture Alt mental st,lethar; Clarity Turbid (Clear); Glucose, Urine (Dipstick) Normal (Negative); Ketone, Urine Negative (Negative); Leukocyte Negative Leu/uL (Negative); Nitrite Negative (Negative); Protein, Urine (Dipstick) Negative (Neg-Trace); RBC/HPF 0-3 HPF (0-3); Specific Gravity, Urine 1.014 (1.002-1.036); Squamous Epithelial 0-3 HPF (0-3); Urobilinogen Normal mg/dL (Less than 2); WBC/HPF 0-3 HPF (0-3); pH, Urine 7.5 (5.0-9.0)
[2024-04-29 09:22] LABS: Unclassified Crystals Rare HPF (None Seen); Urine Culture Reflex No No
[2024-04-29 09:31] LABS: Magnesium 1.8 mg/dL (1.6-2.6)
[2024-04-29] MEDS ORDERED: Acetaminophen 650 MG Suppository PR PRN (09:48)
[2024-04-29] MEDS ORDERED: Acetaminophen 325 MG TAB ONE (10:16)
[2024-04-29 10:33] LABS: Magnesium 1.9 mg/dL (1.6-2.6); Phosphorus 3.4 mg/dL (2.3-4.7)
[2024-04-29] MEDS: Acetaminophen 325 MG TAB PO PRN (10:34)
[2024-04-29 12:22] LABS: Troponin I 0.016 ng/mL (< 0.028)
[2024-04-29 14:09] VITALS: BMI 21.1
[2024-04-29 17:51] LABS: Troponin I Less than 0.010 ng/mL (< 0.028)
[2024-04-29] MEDS ORDERED: Clotrimazole 1 % Cream 30 GM TUBE TOP SCH (21:00)
[2024-04-29] MEDS: Gabapentin 400 MG CAP PO SCH (21:16)
[2024-04-29] MEDS: Mirtazapine 15 MG TAB PO SCH (21:16)
[2024-04-29] MEDS: Famotidine 20 MG TAB PO SCH (21:17)
[2024-04-29] MEDS: Melatonin 3 MG TAB PO SCH (21:17)
[2024-04-30 03:53] LABS: #Basophils Less than 0.03 10x3/uL (0.0-0.2); %Basophils 0.4 % (0.0-1.0); %Eosinophils 4.2 % (0.0-10.0); %Lymphocytes 13.3 % (21.0-51.0); %Monocytes 9.8 % (0.0-10.0); %Neutrophils 72.1 % (42.0-75.0); Hematocrit 39.4 % (42.0-52.0); Hemoglobin 13.3 g/dL (14.0-18.0); Mean Corpuscular HGB CONC 33.8 g/dL (32.0-36.0); Mean Corpuscular Volume 97.8 fL (78.0-98.0); Mean Platelet Volume 9.6 fL (7.4-10.4); Platelet Count 160 10x3/uL (130-400); RBC Distribution Width 12.5 % (11.5-14.5); Red Blood Cell (RBC) Count 4.03 mill/uL (4.70-6.10)
[2024-04-30 04:19] LABS: Anion Gap 10 mmol/L (10-20); BUN (Urea Nitrogen) 12 mg/dL (8.4-25.7); Calc. Creatinine Clearance 74 mL/min (70-130); Calcium 9.1 mg/dL (7.8-10.44); Carbon Dioxide 30 mmol/L (23-31); Chloride 103 mmol/L (98-107); Estimated GFR 89; Glucose 90 mg/dL (83-110); Potassium 3.9 mmol/L (3.5-5.1); Sodium 139 mmol/L (136-145)
[2024-04-30] MEDS: Aspirin 81 mg Enteric Coated Tablet PO SCH (08:39)
[2024-04-30] MEDS: Enoxaparin 40 MG (0.4 mL) SYRINGE SC SCH (08:39)
[2024-04-30] MEDS: Multivit, Therapeutic 1 TAB PO SCH (08:39)
[2024-04-30] MEDS: Zinc Sulfate 220 MG CAP PO SCH (08:39)
[2024-04-30] MEDS: Senokot 8.6 MG TAB PO SCH (08:39)
[2024-04-30] MEDS: Ascorbic Acid 500 mg Chewable Tablet PO SCH (08:39)
[2024-05-02 13:04] VITALS: BP 142/65; TEMP 97.3
== END 2024-05-02 14:39 | DRG 641 ==
LOC: SUATTDRO 07:13 → ERS 07:13 → ERHOLD 09:37 → 2NO 12:21 → OBSVTOIN 05-01 11:54
PROVIDERS: ADMIT Family Medicine; ATTEND Family Medicine
DX: E86.9 Volume depletion, unspecified (principal); I49.3 Ventricular premature depolarization; I10 Essential (primary) hypertension; I95.9 Hypotension, unspecified; F32.A Depression, unspecified; F41.9 Anxiety disorder, unspecified; I65.22 Occlusion and stenosis of left carotid artery; Z79.899 Other long term (current) drug therapy; Z98.890 Other specified postprocedural states; Z79.82 Long term (current) use of aspirin; Z96.651 Presence of right artificial knee joint; Z98.49 Cataract extraction status, unspecified eye
CPT/HCPCS: 36415; 70551; 71045; 80048; 80053; 81001; 83735; 83880; 84100; 84484; 85025; 93005; 93306; 93880; J1650

== ENCOUNTER 2024-09-05 22:24 | Emergency (ER) | payer MEDICARE ==
[2024-09-05] MEDS ORDERED: Aspirin Chewable 81 MG TAB ONE (22:41)
[2024-09-05 22:45] LABS: #Basophils 0.03 10x3/uL (0.0-0.2); %Basophils 0.6 % (0.0-1.0); %Eosinophils 11.8 % (0.0-10.0); %Lymphocytes 15.5 % (21.0-51.0); %Monocytes 8.7 % (0.0-10.0); %Neutrophils 63.2 % (42.0-75.0); Hematocrit 40.6 % (42.0-52.0); Hemoglobin 13.8 g/dL (14.0-18.0); Mean Corpuscular Hemoglobin 32.2 pg (27.0-31.0); Mean Corpuscular Volume 94.9 fL (78.0-98.0); Mean Platelet Volume 9.7 fL (7.4-10.4); Platelet Count 169 10x3/uL (130-400); RBC Distribution Width 12.6 % (11.5-14.5); Red Blood Cell (RBC) Count 4.28 mill/uL (4.70-6.10)
[2024-09-05 23:03] LABS: ALT (SGPT) 22 U/L (8-55); AST (SGOT) 25 U/L (5-34); Albumin 3.8 g/dL (3.4-4.8); Anion Gap 13 mmol/L (10-20); BUN (Urea Nitrogen) 18 mg/dL (8.4-25.7); Bilirubin, Total 0.6 mg/dL (0.2-1.2); Calc. Creatinine Clearance 0 mL/min (70-130); Calcium 9.3 mg/dL (7.8-10.44); Carbon Dioxide 27 mmol/L (23-31); Chloride 100 mmol/L (98-107); Estimated GFR 88; Globulin 2.4 g/dL (2.4-3.5); Glucose 101 mg/dL (83-110); Magnesium 2.2 mg/dL (1.6-2.6); Potassium 4.1 mmol/L (3.5-5.1); Protein, Total 6.2 g/dL (5.8-8.1); Sodium 136 mmol/L (136-145)
[2024-09-05 23:06] LABS: Troponin I Less than 0.010 ng/mL (< 0.028)
[2024-09-05 23:26] LABS: Alkaline Phosphatase 122 U/L (40-110)
[2024-09-06 02:12] LABS: Troponin I Less than 0.010 ng/mL (< 0.028)
== END 2024-09-05 23:00 ==
LOC: ERS 22:24
DX: I20.89 Other forms of angina pectoris (principal); Z86.718 Personal history of other venous thrombosis and embolism; Z96.651 Presence of right artificial knee joint
CPT/HCPCS: 36415; 71045; 80053; 83735; 83880; 84484; 85025; 93005; 94760